=== PATIENT | male | born 1960 | race African-American/Black ===

== ENCOUNTER 2018-03-11 21:00 | Inpatient (IN) | payer OTHER ==
[~2018-03-11] VITALS: Ht 180.3 cm; Wt 108.9 kg
[2018-03-11 22:21] LABS: APPEARANCE,URINE CLEAR (CLEAR); BILIRUBIN,URINE NEGATIVE (NEGATIVE); BLOOD, URINE NEGATIVE Ery/uL (NEGATIVE); COLOR,URINE YELLOW (YELLOW); KETONES,URINE NEGATIVE (NEGATIVE); LEUKOCYTE ESTERASE ,URINE NEGATIVE (NEGATIVE); NITRITE, URINE NEGATIVE (NEGATIVE); PROTEIN,URINE NEGATIVE (NEGATIVE); UGLUCOSE NEGATIVE (NEGATIVE); UROBILINOGEN,URINE 0.2 EU/dL (0.2)
[2018-03-11 22:56] LABS: BASOPHILS % (AUTO) 0.2 % (0.0-2.0); EOSINOPHILS % (AUTO) 1.4 % (0.0-6.0); HEMATOCRIT 40 % (39-51); HEMOGLOBIN 13.2 g/dL (13.5-17.5); LYMPHOCYTES # (AUTO) 2.2 /CMM (0.8-4.8); MEAN CORPUSCULAR HGB CONC 33 g/dl (31.0-36.0); MEAN CORPUSCULAR VOLUME 92 fL (80-96); MONOCYTES # (AUTO) 0.7 /CMM (0.1-1.30); MONOCYTES % (AUTO) 9.5 % (2.0-12.0); NEUTROPHILS # (AUTO) 4.2 /CMM (1.8-8.9); NEUTROPHILS % (AUTO) 58.9 % (43.0-81.0); PLATELET COUNT (AUTO) 239 /CMM (150-450); RDW COEFFICIENT OF VARIATION 13.2 (11.5-15.0); RED BLOOD CELL COUNT(AUTO) 4.41 MIL/uL (4.5-6.0); WHITE BLOOD COUNT (AUTO) 7.2 K/uL (4.3-11.0)
[2018-03-11 22:59] LABS: ALANINE AMINOTRANSFERASE 32 U/L (12-78); ALBUMIN 3.7 g/dL (3.4-5.0); ALKALINE PHOSPHATASE 61 U/L (46-116); ASPARTATE AMINOTRANSFERASE 20 U/L (15-37); BILIRUBIN,DIRECT 0.1 mg/dL (0.0-0.2); BILIRUBIN,TOTAL 0.3 mg/dL (0.2-1.0); CALCIUM, SERUM 8.7 mg/dL (8.5-10.1); CARBON DIOXIDE 29 mmol/L (21-32); CHLORIDE 102 mmol/L (98-107); CREATININE 1.2 mg/dL (0.6-1.3); GLUCOSE 99 mg/dL (74-106); SALICYLATE 0.3 mg/dL (2.8-20.0); SODIUM SERUM 139 mmol/L (136-145); TOTAL PROTEIN, SERUM 6.8 g/dL (6.4-8.2)
[2018-03-11 23:00] LABS: ACETAMINOPHEN < 0 ug/ml (10-30); ALCOHOL, BLOOD < 0 mg/dL (0-0)
[2018-03-11 23:04] LABS: UREA NITROGEN, BLOOD 12 mg/dL (7-18)
[2018-03-12] MEDS ORDERED: TEMAZEPAM 7.5 MG CAPSULE PO PRN (02:30)
[2018-03-12] MEDS ORDERED: MAG HYDROX/AL HYDROX/SIMETH 30 ML UDC PO PRN (02:30)
[2018-03-12] MEDS ORDERED: MAGNESIUM HYDROXIDE 30 ML UDC PO PRN (02:30)
[2018-03-12] MEDS ORDERED: ACETAMINOPHEN 325 MG TABLET PO PRN (02:30)
[2018-03-12] MEDS ORDERED: METO50TA16 PO ×2 (03:07→10:10)
[2018-03-12] MEDS ORDERED: NAPR-1164 PO (03:07)
[2018-03-12] MEDS ORDERED: AMLO5TAB7 PO ×2 (03:07→10:10)
[2018-03-12 03:22] VITALS: BP 137/79
[2018-03-12 08:00] VITALS: BP 150/93
[2018-03-12] MEDS ORDERED: DIAZ2TAB3 PO (08:25)
[2018-03-12] MEDS ORDERED: LORA1TAB PO (08:25)
[2018-03-12] MEDS ORDERED: TRAZ-213 PO (08:25)
[2018-03-12] MEDS: LORAZEPAM 0.5 MG TABLET PO PRN (10:31)
[2018-03-12] MEDS: QUETIAPINE FUMARATE 25 MG TABLET PO SCH ×2 (10:31→16:19)
[2018-03-12] MEDS: AMLODIPINE BESYLATE 5 MG TABLET PO SCH (11:27)
[2018-03-12] MEDS: METOPROLOL TARTRATE 50 MG TABLET PO SCH ×2 (11:28→16:20)
[2018-03-12 16:00] VITALS: BP 130/68
[2018-03-12 20:00] VITALS: BP 134/95
[2018-03-12] MEDS: QUETIAPINE FUMARATE 100 MG TABLET PO SCH (21:25)
[2018-03-12] MEDS: MIRTAZAPINE 15 MG TABLET PO SCH (21:28)
[2018-03-13 08:00] VITALS: BP 151/99
[2018-03-13 08:23] LABS: ALBUMIN 3.8 g/dL (3.4-5.0); BILIRUBIN,TOTAL 0.4 mg/dL (0.2-1.0); CALCIUM, SERUM 9.2 mg/dL (8.5-10.1); CREATININE 1.2 mg/dL (0.6-1.3); POTASSIUM 4.4 mmol/L (3.5-5.1); TOTAL PROTEIN, SERUM 7.5 g/dL (6.4-8.2)
[2018-03-13 08:28] LABS: CHOLESTEROL 153 mg/dL (<200); HDL CHOLESTEROL 47 mg/dL (40-60); LDL 82 mg/dL (0-99); TRIGLYCERIDES 215 mg/dL (30-150)
[2018-03-13 08:31] LABS: BASOPHILS % (AUTO) 0.2 % (0.0-2.0); EOSINOPHILS % (AUTO) 1.9 % (0.0-6.0); HEMATOCRIT 51 % (39-51); HEMOGLOBIN 16.7 g/dL (13.5-17.5); LYMPHOCYTES % (AUTO) 35.4 % (20.0-44.0); MEAN CORPUSCULAR HGB CONC 33 g/dl (31.0-36.0); MEAN CORPUSCULAR VOLUME 93 fL (80-96); MONOCYTES # (AUTO) 0.6 /CMM (0.1-1.30); MONOCYTES % (AUTO) 7.5 % (2.0-12.0); NEUTROPHILS # (AUTO) 4.7 /CMM (1.8-8.9); PLATELET COUNT (AUTO) 268 /CMM (150-450); RDW COEFFICIENT OF VARIATION 13.9 (11.5-15.0); RED BLOOD CELL COUNT(AUTO) 5.52 MIL/uL (4.5-6.0); WHITE BLOOD COUNT (AUTO) 8.5 K/uL (4.3-11.0)
[2018-03-13] MEDS: QUETIAPINE FUMARATE 25 MG TABLET PO SCH ×2 (08:34→17:17)
[2018-03-13] MEDS: AMLODIPINE BESYLATE 5 MG TABLET PO SCH (08:34)
[2018-03-13] MEDS: METOPROLOL TARTRATE 50 MG TABLET PO SCH ×2 (08:35→17:17)
[2018-03-13] MEDS: LORAZEPAM 0.5 MG TABLET PO PRN (14:25)
[2018-03-13 16:00] VITALS: BP 144/98
[2018-03-13 20:00] VITALS: BP 146/68
[2018-03-13] MEDS ORDERED: LORAZEPAM 0.5 MG TABLET PO ONE (20:00)
[2018-03-13] MEDS: QUETIAPINE FUMARATE 100 MG TABLET PO SCH (21:16)
[2018-03-13] MEDS: MIRTAZAPINE 15 MG TABLET PO SCH (21:36)
[2018-03-13] MEDS: ZOLPIDEM TARTRATE 10 MG TABLET PO PRN (22:09)
[2018-03-14 08:00] VITALS: BP 139/82
[2018-03-14] MEDS: METOPROLOL TARTRATE 50 MG TABLET PO SCH ×2 (09:00→16:33)
[2018-03-14] MEDS: AMLODIPINE BESYLATE 5 MG TABLET PO SCH (09:01)
[2018-03-14] MEDS: QUETIAPINE FUMARATE 25 MG TABLET PO SCH ×2 (09:01→16:32)
[2018-03-14] MEDS: LORAZEPAM 0.5 MG TABLET PO PRN ×2 (09:11→16:49)
[2018-03-14 16:00] VITALS: BP 122/69
[2018-03-14 20:00] VITALS: BP 125/71
[2018-03-14] MEDS: QUETIAPINE FUMARATE 100 MG TABLET PO SCH (21:42)
[2018-03-14] MEDS: ZOLPIDEM TARTRATE 10 MG TABLET PO PRN (21:48)
[2018-03-14] MEDS: MIRTAZAPINE 15 MG TABLET PO SCH (21:50)
[2018-03-15] MEDS: LORAZEPAM 1 MG TABLET PO PRN ×2 (04:23→16:27)
[2018-03-15] MEDS: QUETIAPINE FUMARATE 25 MG TABLET PO SCH ×2 (08:20→16:10)
[2018-03-15] MEDS: AMLODIPINE BESYLATE 5 MG TABLET PO SCH (08:22)
[2018-03-15] MEDS: METOPROLOL TARTRATE 50 MG TABLET PO SCH ×2 (08:22→16:10)
[2018-03-15 09:28] VITALS: BP 152/91
[2018-03-15 16:45] VITALS: BP 122/92
[2018-03-15 20:42] VITALS: BP 150/94
[2018-03-15] MEDS: ZOLPIDEM TARTRATE 10 MG TABLET PO PRN (20:58)
[2018-03-15] MEDS: MIRTAZAPINE 15 MG TABLET PO SCH (22:00)
[2018-03-15] MEDS: QUETIAPINE FUMARATE 100 MG TABLET PO SCH (22:00)
[2018-03-16] MEDS: MIRTAZAPINE 15 MG TABLET PO SCH ×2 (05:54→21:26)
[2018-03-16 08:00] VITALS: BP 117/59
[2018-03-16] MEDS: QUETIAPINE FUMARATE 25 MG TABLET PO SCH (09:00)
[2018-03-16] MEDS: METOPROLOL TARTRATE 50 MG TABLET PO SCH ×2 (09:00→17:00)
[2018-03-16] MEDS: AMLODIPINE BESYLATE 5 MG TABLET PO SCH (09:00)
[2018-03-16] MEDS: LORAZEPAM 1 MG TABLET PO PRN (09:03)
[2018-03-16] MEDS ORDERED: QUETIAPINE FUMARATE 25 MG TABLET PO STA (14:32)
[2018-03-16 16:07] VITALS: BP 152/68
[2018-03-16] MEDS ORDERED: LORAZEPAM 1 MG TABLET PO PRN ×2 (17:00→20:30)
[2018-03-16 20:00] VITALS: BP 135/77
[2018-03-16 20:17] VITALS: BP 135/77
[2018-03-16] MEDS: ZOLPIDEM TARTRATE 10 MG TABLET PO PRN (20:27)
[2018-03-16] MEDS: QUETIAPINE FUMARATE 100 MG TABLET PO SCH (21:22)
[2018-03-17 08:00] VITALS: BP 119/70
[2018-03-17 09:00] VITALS: BP 110/70
[2018-03-17] MEDS: METOPROLOL TARTRATE 50 MG TABLET PO SCH (09:00)
[2018-03-17] MEDS: AMLODIPINE BESYLATE 5 MG TABLET PO SCH (09:00)
== END 2018-03-17 11:15 | disposition home or self-care (01) | DRG 885 ==
LOC: ER 21:06 → GPS 03-12 01:51
PROVIDERS: ADMIT Psychiatry & Neurology Psychiatry; ATTEND Internal Medicine
DX: F29 Unspecified psychosis not due to a substance or known physiological condition (principal); F32.3 Major depressive disorder, single episode, severe with psychotic features; I10 Essential (primary) hypertension; D64.9 Anemia, unspecified
CPT/HCPCS: 36415; 80048-TC; 80053-TC; 80061-TC; 80076-TC; 80305; 81000-TC; 85025-TC; 87081-TC; A4606; G0480; Z7610